=== PATIENT | female | born 1965 | race Caucasian/White ===

== ENCOUNTER 2022-01-03 12:06 | Outpatient (CLI) | payer BC, SELFPAY ==
--- NOTE | 2022-01-03 | ECG_ITS ---
Measurements Intervals [place] Rate: 82 P: 58 MO: 188 QRS: -53 QRSD: 109 T: 44 QT: 370 QTc: 433 Interpretive Statements SINUS RHYTHM LEFT ANTERIOR FASCICULAR BLOCK BASELINE WANDER- I ABNORMAL ECG Electronically Signed On 01-03-2022 13:05:00 CDT by Gutsavo Felder D.O.
[2022-01-03 12:39] LABS: Hematocrit 40.5 % (37.0-47.0); Hemoglobin 13.2 g/dL (12.0-15.0)
[2022-01-03 12:48] LABS: Albumin Level 5.3 g/dL (3.5-5.1); Estimated Glomerular Filt Rate > 60; Glucose 116 mg/dL (65-110)
[2022-01-03 12:49] LABS: Hemoglobin A1C 5.2 % (<5.7)
[2022-01-03 12:49] LABS: Urine Cotinine POSITIVE
== END 2022-01-03 12:07 | disposition home or self-care (01) ==
LOC: ANHLAB 12:08
PROVIDERS: Visit Provider Orthopaedic Surgery
DX: Z01.818 Encounter for other preprocedural examination (principal); M16.11 Unilateral primary osteoarthritis, right hip; I10 Essential (primary) hypertension; I44.4 Left anterior fascicular block
CPT/HCPCS: 80307; 82040; 82565; 82947; 83036; 85014; 85018; 93005

== ENCOUNTER 2022-02-06 10:03 | Outpatient (CLI) | payer BC, SELFPAY ==
[2022-02-06 10:35] LABS: Urine Cotinine NEGATIVE
== END 2022-02-06 10:04 | disposition home or self-care (01) ==
LOC: ANHLAB 10:08
PROVIDERS: Visit Provider Orthopaedic Surgery
DX: M16.11 Unilateral primary osteoarthritis, right hip (principal); Z87.891 Personal history of nicotine dependence; Z01.812 Encounter for preprocedural laboratory examination
CPT/HCPCS: 80307

== ENCOUNTER 2022-03-26 11:50 | Outpatient (CLI) | payer BC, SELFPAY ==
[2022-03-26 13:21] LABS: Basophils Absolute Auto 0.1 K/mm3 (0.0-0.1); Basophils Percent Auto 0.9 % (0.2-1.2); Eosinophils Absolute Auto 0.1 K/mm3 (0-0.3); Eosinophils Percent Auto 2.1 % (0-4.4); Hematocrit 34.3 % (37.0-47.0); Hemoglobin 12.2 g/dL (12.0-15.0); Immature Granulocyte Absolute 0.04 K/mm3 (0.00-0.031); Immature Granulocyte Percent A 0.7 % (0-0.5); Lymphocytes Absolute Auto 2.59 K/mm3 (0.9-3.2); Lymphocytes Percent Auto 45.1 % (18.3-44.2); Mean Corpuscular HGB Conc 35.6 g/dl (32-36); Mean Corpuscular Hemoglobin 33.2 pg (26-34); Mean Corpuscular Volume 93.5 fl (80-100); Mean Platelet Volume 9.3 fl (7.4-10.4); Monocytes Absolute Auto 0.4 K/mm3 (0.1-0.6); Monocytes Percent Auto 6.6 % (2.6-8.5); Neutrophils Absolute Auto 2.6 K/mm3 (1.3-6.7); Neutrophils Percent Auto 44.6 % (45.5-73.1); Platelet Count Result 252 k/mm3 (150-375); Red Blood Count 3.67 M/mm3 (4.2-5.4); Red Cell Distribution Width 12.7 % (11.5-14.5); White Blood Count 5.7 K/mm3 (4.5-10.0)
[2022-03-26 13:31] LABS: Urine Cotinine NEGATIVE
[2022-03-26 13:32] LABS: Albumin Level 5.3 g/dL (3.5-5.1); Estimated Glomerular Filt Rate > 60; Glucose 103 mg/dL (65-110)
[2022-03-26 13:34] LABS: Hemoglobin A1C 5.3 % (<5.7)
== END 2022-03-26 11:51 | disposition home or self-care (01) ==
PROVIDERS: PCP Physician Assistant; Visit Provider Orthopaedic Surgery
DX: M16.11 Unilateral primary osteoarthritis, right hip (principal); Z01.818 Encounter for other preprocedural examination
CPT/HCPCS: 80307; 82040; 82565; 82947; 83036; 85025; 87081

== ENCOUNTER 2022-04-17 01:33 | Day surgery (SDC) | payer BC, SELFPAY ==
[2022-03-26 12:03] VITALS: BMI 24.9
--- NOTE | 2022-03-26 12:26 | PC.NURSE ---
Report to the Outpatient Waiting Room, entrance under the green pavilion located off [facility], at time _0600 on date . OR Time: __04/17/22 729 - You and your visitor will be asked a series of questions to screen for COVID 19 for your protection. - Only one visitor is allowed at this time. - The patient visitor is requested to leave or wait in car when not with patient. - A mask is required within the hospital. Patients may have clear liquids (water, carbonated beverages, clear teas, apple juice) until 3 hours prior to surgery with a maximum of 20 ounces. - No food from midnight until time of surgery - Infants may have breast milk until 4 hours before surgery, infant formula 6 hours prior to surgery. - Children will be allowed to drink immediately following surgery. If applicable, please bring a bottle or sippy cup to assist with drinking. Juice, water, soda, and popsicles are readily available. For infants on formula, please bring formula the day of surgery. Pacifiers are allowed. Take the following medications with a SIP of water the morning of surgery: __PAROXETINE Medications to discontinue per physician IBUPROFEN/ALEVE 7 DAYS PRE OP__MAY TAKE TYLENOL IF NEEDED Date to take last dose__04/09/22 Please no make-up, nail tajik, hairspray, perfume, deodorant, or body powder the day of surgery. No jewelry (including any body piercings) or valuables the day of surgery, leave them at home. Please take a shower or bath the night before, or the morning of, surgery with an antibacterial soap. Wear comfortable, loose fitting clothing. Children are encouraged to wear pajamas. - Jewelry must be removed prior to entering the operating room. Rings and piercings that are not removed may be cut off. - The hospital will not accept responsibility for valuables. - Please leave all valuables, including medications, at home the day of surgery. If you are going home after surgery, a licensed electric pile driver operator must drive you home. - NO public transportation without another adult. - We recommend that an adult stay with you for 24 hours following discharge. - We also recommend that you do not drive, make important decision, drink alcoholic beverages, or take any drugs that were not prescribed by your health care provider for at least 24 hours after your discharge time. For Pediatric surgeries, we recommend two adults accompany the child home (only one inside the building at this time). Follow any additional instructions given to you from your surgeon. If you or anyone in your household have experienced Covid symptoms in the past week, please notify your surgeon or the nurse liaison at the phone number below for possible testing. VERBAL AND WRITTEN instructions given to __PATIENT and asked if any additional questions and then verbalized understanding. Patient advised to call surgeon office or pre surgery nurse liaison [phone] if any additional questions.
[2022-03-26 12:48] VITALS: BP 144/93; PULSE 75; RESP 18; TEMP 36.6; O2SAT 100
--- NOTE | 2022-04-16 13:54 | WPDANESEPPF ---
Anes - Initial Pre Proc Eval Procedure: Operation Date: 04/17/22 07:30 Proposed Procedures p Right Total Hip Arthroplasty - Dm Ziegler MD Date/Time: 04/16/22 13:54 Surgeon: Dm Ziegler MD Pre Op Diagnosis: primary oa right hip Patient Data Age: 56 Gender: F Height: 1.64 m Weight: 66.9 kg Last Vital Signs Temp 36.6 C 03/26/22 12:48 Pulse 75 03/26/22 12:48 Resp 18 03/26/22 12:48 BP 144/93 H 03/26/22 12:48 Pulse Ox 100 03/26/22 12:48 O2 Del Method Room Air 03/26/22 12:48 Allergies Allergy/AdvReac Type Severity Reaction Status Date / Time latex Allergy Intermediate RASH/ITCHIN Verified 04/17/22 06:28 G adhesive tape AdvReac Severe SKIN TORE Verified 04/17/22 06:28 OFF Home Medications Medication Instructions Recorded Confirmed Type lisinopril 40 mg tablet 40 mg PO DAILY 01/01/22 04/17/22 History paroxetine HCl 40 mg tablet 40 mg PO DAILY 01/01/22 04/17/22 History hydrochlorothiazide 12.5 mg tablet 12.5 mg PO DAILY 03/26/22 04/17/22 History ibuprofen 600 mg tablet 600 mg PO TID PRN Pain 03/26/22 04/17/22 History Patient hx anesthesia problems: post op nausea/vomiting Family hx anesthesia problems: none Results Review: All pre-operative results and documents have been reviewed as part of the pre-operative evaluation. [facility] Past Medical History Medical History (Updated 04/16/22 @ 13:55 by Eitan Mariscal DO) delivery delivered Hypertension PONV (postoperative nausea and vomiting) Surgical History Surgical History (Updated 04/16/22 @ 13:55 by Eitan Mariscal DO) H/O: hysterectomy History of abdominoplasty Hx of breast reduction, elective Family History Family History Other Arthritis Hypertension Social History Social History Years smoked: 20 Smoking status: Former smoker Tobacco type: cigarettes Smoking end date: 10/03/21 Additional smoking assessment comments: DENIES ANY FORM OF TOBACCO USE Alcohol intake: current Drinks per week: 12 Alcohol use details: BEER Substance use: current Living arrangements: alone Spiritual care concerns: No Anes - Eval Final PreProcedure Day of Procedure 04/16/22 13:54 Patient weight: normal Heart: regular rate and rhythm Lungs: clear to auscultation Airway: Mallampati scale class II Neurological: alert and oriented Last oral intake: >/= 8 hours ASA classification: III Emergent: no Anesthetic plan: proceed Anesthesia type and monitoring: general ETT and standard monitoring Results Review: All pre-operative results and documents have been reviewed as part of the pre-operative evaluation. Informed Consent: The patient's anesthetic plan and its attendant risks and benefits were discussed with the patient/family/POA. Questions were solicited and answers provided to the satisfaction of the patient/family/POA.
[2022-04-17] VITALS (13 sets, daily range): BP systolic 114–171; BP diastolic 63–98; PULSE 85–126; RESP 12–20; TEMP 36.4–37.1; O2SAT 94–100
--- NOTE | ~2022-04-17 | XR_ITS ---
EXAMINATION: XR hip RT min 2V DATE: 04/17/2022 09:30 INDICATION: Right total hip arthroplasty TECHNIQUE: 2 views right hip FINDINGS: There is a right total hip arthroplasty in expected position. Subcutaneous gas with soft t issue swelling are consistent with recent surgery. IMPRESSION: 1. Recent right total hip arthroplasty. Reviewed, dictated and finalized at location B.
[2022-04-17] MEDS: ACETAMINOPHEN 500 MG TABLET 1000 MG PO (06:35)
[2022-04-17] MEDS: LACTATED RINGERS 1,000 ML 30 ML IV CONT ×2 (06:47→09:18)
[2022-04-17] MEDS: SCOPOLAMINE 1.5 MG PATCH TRANSDERM (07:02)
[2022-04-17] MEDS: TRANEXAMIC ACID 1,000MG/ISO100 1,000 MG/100 ML BAG 200 MG IVPB (07:06)
--- NOTE | 2022-04-17 07:13 | WPDHPUPDATE1 ---
History and Physical Update Update Date/Time: 04/17/22 07:13 History and Physical has been reviewed, including an updated exam of the patient. There are NO changes in the patient's condition. Risks, benefits, and alternatives have been discussed and questions answered. Patient agrees to proceed with procedure.
[2022-04-17] MEDS: ceFAZolin 2 GM/D5W 50 ML 2 GM/50 ML BAG IVPB ×3 (07:22→23:54)
[2022-04-17] MEDS: fentaNYL CITRATE INJ (*CRX) 100 MCG/2 ML VIAL 25 MCG IV PUSH ×2 (09:46→09:49)
--- NOTE | 2022-04-17 11:13 | ADMGEN ---
This patient, Emi Pratt, was admitted to 2 Medical Room 249-01. Patient/family oriented to hospital policies and general routines including ID bracelet, bed and alarms, visiting hours, pain management, procedures, bathroom and other care routines, personal items, smoking policy, room service/diet, and visiting hours. Information on how to activate the Rapid Response Team has been discussed. Patient/Family are encouraged to report perceived risks to care and to ask questions if they do not understand what they are told or what they should do. Report received from MAXINE Barros
[2022-04-17] MEDS: hydroCHLOROthiazide 12.5 MG CAPSULE PO (12:12)
[2022-04-17] MEDS: lisinopriL 20 MG TABLET 40 MG PO (12:13)
[2022-04-17] MEDS: IBUPROFEN 400 MG TABLET 800 MG PO ×2 (14:27→21:04)
[2022-04-17] MEDS: oxyCODONE HCL (*CRX) 5 MG TAB IR 10 MG PO (14:28)
--- NOTE | 2022-04-17 15:00 | W.PM.PROC2 ---
Procedure Note - Detailed Date of Procedure 04/17/22 Pre-op Diagnosis primary oa right hip Post-op Diagnosis Same Procedure Performed Right Total Hip Arthroplasty Surgeon Dm Ziegler MD Ambulance Driver Paramedic Nely Cazares PA-C Anesthesia General Description of Procedure The patient was given preoperative antibiotics. A general anesthetic was administered. The patient was carefully placed in the lateral decubitus position on the PEG board. The shoulders and hips were carefully positioned for component and leg length positioning reference. The hip was prepped and draped in the usual sterile fashion. A longitudinal incision was created over the posterior aspect of the greater trochanter. Careful dissection was brought down through the deep fascia with electrocautery. A minimally invasive optimized posterior approach to the hip was performed. The short external rotators and capsule were taken down in an L-shaped capsulotomy. The tissue was tagged for later repair using number 2 high strength suture. The femoral neck was measured and taken in situ. The femoral head was removed. The acetabulum was carefully exposed. The inferior capsule was released. The labrum was resected. The acetabulum was sequentially reamed to the intended cup size. The cup was impacted into position with excellent press-fit. Typical anatomic landmarks, including the bony contact points as well as the inferior transverse acetabular ligament were used to confirm cup positioning with preoperative templating. Attention was turned to the femur, which was carefully exposed. The hip was reamed and then broached sequentially. Excellent press-fit was obtained with the broach. The hip was trialed. Measurements were utilized, including the lesser trochanter as well as the center of the femoral head and the tip of the trochanter, and excellent assessment of the offset and leg lengths were confirmed. The real component was impacted into position. Trialing confirmed appropriate leg length and offset with soft tissue balancing as well apparent feel of the leg, both at the knee and the heel. Soft tissues were assessed using the the iliotibial band. Reduction of the posterior capsule and external rotators were also used as a secondary assessment. The hip was copiously irrigated with pulsatile lavage antibiotic solution periodically throughout the procedure. The real components were then assembled and reduced. The hip was stable throughout typical maneuvers, including extension, external rotation to 70 degrees, the position of sleep as well as flexion to 90 degrees with internal rotation past 45 degrees. The shake test confirmed stability without impingement. Osteophytes were removed as necessary. The short external rotators and capsule were repaired back to the posterior trochanter through drill holes. The deep fascia was repaired with running number 2 Quill suture, followed by 0 Stratafix suture and 2-0 Stratafix suture in the dermis. Steri-Strips were placed on the skin, followed by a sterile silver occlusive dressing. There were no complications. Meticulous hemostasis was maintained with the AquaMantys device. The patient was brought to the recovery room in stable condition. There were no complications. Physician assistant community director, Nely Cazares PA-C, required for surgery; including patient positioning, draping, tissue retraction, maintaining instrument position, hip dislocation/ relocation, wound closure, and dressing placement. Implants The Accolade II hip stem, 127 degree size 3 , was utilized with excellent press-fit. The 50 mm Trident II acetabular component was impacted with excellent press-fit stability. The +5 , 36 mm Biolox ceramic femoral head was utilized. Estimated Blood Loss -150.0 Drains No Packing No Pathology None sent Complications No immediate complications Condition Stable Disposition PACU [facility] Billing Surgery - Charge Forward: Surgery Billing
[2022-04-17] MEDS: ASPIRIN 81 MG ENTERIC TABLET PO (16:08)
[2022-04-17] MEDS: SENNA/DOCUSATE SODIUM TABLET 2 TAB PO (16:08)
[2022-04-17] MEDS: oxyCODONE HCL (*CRX) 5 MG TAB IR PO (18:33)
[2022-04-17] MEDS: FAMOTIDINE 20 MG TABLET PO (21:04)
[2022-04-18] MEDS: oxyCODONE HCL (*CRX) 5 MG TAB IR PO ×2 (00:22→09:35)
[2022-04-18 00:32] VITALS: BP 118/69; PULSE 80; RESP 18; TEMP 36.4; O2SAT 100
[2022-04-18 04:32] VITALS: BP 98/61; PULSE 77; RESP 18; TEMP 36.4; O2SAT 100
[2022-04-18] MEDS: IBUPROFEN 400 MG TABLET 800 MG PO ×2 (06:23→13:38)
[2022-04-18 09:33] VITALS: BP 133/62; PULSE 91
[2022-04-18] MEDS: ceFAZolin 2 GM/D5W 50 ML 2 GM/50 ML BAG IVPB (09:34)
[2022-04-18] MEDS: SENNA/DOCUSATE SODIUM TABLET 2 TAB PO (09:37)
[2022-04-18] MEDS: lisinopriL 20 MG TABLET 40 MG PO (09:37)
[2022-04-18] MEDS: hydroCHLOROthiazide 12.5 MG CAPSULE PO (09:37)
[2022-04-18] MEDS: FAMOTIDINE 20 MG TABLET PO (09:37)
[2022-04-18] MEDS: ASPIRIN 81 MG ENTERIC TABLET PO (09:37)
--- NOTE | 2022-04-18 09:59 | WPDANESPN ---
Anes - Prog Note Post-Op Date/Time: 04/18/22 09:59 Cardiovascular status: normal Respiratory status: normal Airway patency: baseline Mental status: baseline Post-Op hydration status: normal Vital Signs: Last Vital Signs Temp 36.4 C 04/18/22 04:32 Pulse 91 04/18/22 09:33 Resp 18 04/18/22 04:32 BP 133/62 04/18/22 09:33 Pulse Ox 100 04/18/22 04:32 O2 Del Method Room Air 04/17/22 13:08 O2 Flow Rate 8 04/17/22 10:05 Pain Score (VAS): 3 I/O: Intake & Output 04/17/22 04/18/22 04/18/22 23:59 07:59 15:59 Intake Total 850 150 360 Output Total 900 500 Balance -50 -350 360 Post-procedural complaints: none Patient Feedback: Patient satisfied with anesthetic care.
[2022-04-18] MEDS: PARoxetine 20 MG TABLET 40 MG PO (12:27)
[2022-04-18] MEDS: polyethylene glycoL 3350 17 GM POWD.PACK PO (12:27)
[2022-04-18 12:32] VITALS: BP 130/64; PULSE 86; RESP 18; TEMP 36.4; O2SAT 100
--- NOTE | 2022-04-18 16:20 | PM.DS ---
DS: Admitting Diagnosis Discharge Date 04/18/22 Admitting Diagnosis Right hip arthritis. DS: Discharge Diagnosis Discharge Diagnosis (1) Status post total hip replacement, right: Code(s): Z96.641 - Presence of right artificial hip joint Status: Acute DS: Summary Hospital Course Reason for hospitalization: Total hip arthroplasty. Hospital Course: Tolerated surgery well. Progressed appropriately with therapy. Status at Discharge Functional status at discharge: uses cane/walker Overall status at discharge: patient is progressing back to baseline Time Spent with Patient Time attestation: Total time spent providing and/or coordinating discharge services: Exam Const: General: no acute distress Resp: Effort & Inspection: normal respiratory effort Skin: Other: Wound healing well. Mepilex dressing intact. No hematoma or drainage. Neuro: Motor exam (neuro): 5/5 motor strength present throughout Sensory Exam: normal sensation Psych: Mental Status: mental status grossly normal Speech and movement: Normal speech and movement present DS: Data Procedures/Treatments: Right total hip arthroplasty. Discharge Plan Discharge Patient Disposition: Home, Self-Care Discharge Instructions: See instruction sheet. Stand Alone Forms: General Discharge Instructions Follow-up/Referrals: Dm Ziegler MD [Physician] - Discharge Medications: New aspirin 81 mg Tablet,Delayed Release (Dr/Ec) 81 mg PO BID Qty: 30 0RF oxycodone-acetaminophen 5-325 mg tablet 1 - 2 tablet PO Q4-6H MDD 6 tablets PRN (Reason: pain) Qty: 20 0RF Continued lisinopril 40 mg tablet 40 mg PO DAILY paroxetine HCl 40 mg tablet 40 mg PO DAILY hydrochlorothiazide 12.5 mg tablet 12.5 mg PO DAILY ibuprofen 600 mg Tablet 600 mg PO TID PRN (Reason: Pain)
== END 2022-04-18 17:28 | disposition home or self-care (01) ==
LOC: ANHSURGERY 06:00 → ANH2MED 10:51
PROVIDERS: PCP Physician Assistant; Visit Provider Orthopaedic Surgery
PROC: (CPT 27130; principal; 2022-04-17 07:30)
DX: M16.11 Unilateral primary osteoarthritis, right hip (principal); I10 Essential (primary) hypertension; Z87.891 Personal history of nicotine dependence
CPT/HCPCS: 27130; 36415; 73502; 86850; 86900; 86901; 97110; 97116; 97161; 97165; 97530; 97535; A9270; C1776; J0131; J0171; J0690; J1100; J1170; J1885; J2250; J2270; J2405; J2704; J2710; J2795; J3010; J7120

== ENCOUNTER 2022-06-06 14:49 | Outpatient (CLI) | payer BC, SELFPAY ==
[2022-06-06 15:38] LABS: Hematocrit 36.8 % (37.0-47.0); Hemoglobin 12.3 g/dL (12.0-15.0)
[2022-06-06 15:47] LABS: Albumin Level 5.1 g/dL (3.5-5.1); Estimated Glomerular Filt Rate > 60; Glucose 104 mg/dL (65-110)
[2022-06-06 15:48] LABS: Hemoglobin A1C 4.9 % (<5.7)
[2022-06-06 21:42] LABS: Urine Cotinine NEGATIVE
== END 2022-06-06 14:50 | disposition home or self-care (01) ==
LOC: ANHLAB 14:51
PROVIDERS: PCP Physician Assistant; Visit Provider Orthopaedic Surgery
DX: M16.12 Unilateral primary osteoarthritis, left hip (principal); Z92.29 Personal history of other drug therapy
CPT/HCPCS: 80307; 82040; 82565; 82947; 83036; 85014; 85018

== ENCOUNTER 2022-07-18 13:04 | Outpatient (CLI) | payer BC, SELFPAY ==
[2022-07-18 13:34] LABS: Basophils Absolute Auto 0.1 K/mm3 (0.0-0.1); Basophils Percent Auto 0.9 % (0.2-1.2); Eosinophils Absolute Auto 0.2 K/mm3 (0-0.3); Eosinophils Percent Auto 2.5 % (0-4.4); Hematocrit 38.9 % (37.0-47.0); Hemoglobin 12.9 g/dL (12.0-15.0); Immature Granulocyte Absolute 0.05 K/mm3 (0.00-0.031); Immature Granulocyte Percent A 0.7 % (0-0.5); Lymphocytes Absolute Auto 2.93 K/mm3 (0.9-3.2); Lymphocytes Percent Auto 39.1 % (18.3-44.2); Mean Corpuscular HGB Conc 33.2 g/dl (32-36); Mean Corpuscular Hemoglobin 32.3 pg (26-34); Mean Corpuscular Volume 97.3 fl (80-100); Mean Platelet Volume 9.1 fl (7.4-10.4); Monocytes Absolute Auto 0.4 K/mm3 (0.1-0.6); Monocytes Percent Auto 5.9 % (2.6-8.5); Neutrophils Absolute Auto 3.8 K/mm3 (1.3-6.7); Neutrophils Percent Auto 50.9 % (45.5-73.1); Platelet Count Result 273 k/mm3 (150-375); Red Cell Distribution Width 11.4 % (11.5-14.5); White Blood Count 7.5 K/mm3 (4.5-10.0)
[2022-07-18 13:42] LABS: Anion Gap 11 mmol/L (8-16); Blood Urea Nitrogen 15 mg/dL (7-17); Calcium 9.2 mg/dL (8.4-10.2); Carbon Dioxide 26 mmol/L (22-30); Chloride 103 mmol/L (98-107); Estimated Glomerular Filt Rate > 60; Glucose 137 mg/dL (65-110); Potassium 4.1 mmol/L (3.4-5.0); Sodium 140 mmol/L (137-145)
== END 2022-07-18 13:05 | disposition home or self-care (01) ==
LOC: ANHSURGERY 13:08
PROVIDERS: Anesthesiology; PCP Physician Assistant; Visit Provider Orthopaedic Surgery
DX: M16.12 Unilateral primary osteoarthritis, left hip (principal); Z01.818 Encounter for other preprocedural examination
CPT/HCPCS: 36415; 80048; 85025; 86850; 86900; 86901; 87081

== ENCOUNTER 2022-07-24 01:24 | Day surgery (SDC) | payer BC, SELFPAY ==
[2022-07-13 13:05] VITALS: BMI 26.0
--- NOTE | 2022-07-13 13:33 | PC.NURSE ---
Report to the Outpatient Waiting Room, entrance under the green pavilion located off [facility], at time _11:30AM on date __07/24/22 . Planned Procedure Time: __1:30PM . Time changes happen often and if your time is changed the preop area will call you the afternoon before. - You and your visitor will be asked to self-screen and do not enter if you have any COVID symptoms. - We encourage only one visitor and NO visitors under age 16 are allowed at this time. Your visitor will receive communication by the phone number that is given day of service. - The patient visitor is requested to social distance or may leave the building when not with patient due to restrictions. - A mask is required within the hospital. Patients may have clear liquids (water, carbonated beverages, clear teas, apple juice) until 3 hours prior to surgery with a maximum of 20 ounces. - No food from midnight until time of surgery Take the following medications with a SIP of water the morning of surgery: PAROXETINE Medications to discontinue per physician ____HOLD ALL VITAMINS/SUPPLEMENTS 7 DAYS PRE-OP PER DR MATUTE(PER PT) AND HOLD ASPIRIN 7 DAYS PRE-OP PER DR MATUTE Date to take last dose____07/17/22 Please no make-up, nail vietnamese, hairspray, perfume, deodorant, or body powder the day of surgery. No jewelry (including any body piercings) or valuables the day of surgery, leave them at home. Please take a shower or bath the night before, or the morning of, surgery with an antibacterial soap. Wear comfortable, loose fitting clothing. Children are encouraged to wear pajamas. - Jewelry must be removed prior to entering the operating room. Rings and piercings that are not removed may be cut off. - The hospital will not accept responsibility for valuables. - Please leave all valuables, including medications, at home the day of surgery. If you are going home after surgery, a licensed drive away driver must drive you home. - NO public transportation without another adult. - We recommend that an adult stay with you for 24 hours following discharge. - We also recommend that you do not drive, make important decision, drink alcoholic beverages, or take any drugs that were not prescribed by your health care provider for at least 24 hours after your discharge time.ome. Follow any additional instructions given to you from your surgeon. If you or anyone in your household have experienced Covid symptoms in the past week, please notify your surgeon or the nurse liaison at the phone number below for possible testing. Telephone instructions given to __PATIENT and asked if any additional questions and then verbalized understanding. Patient advised to call surgeon office or pre surgery nurse liaison [phone] if any additional questions.
--- NOTE | 2022-07-23 12:53 | WPDANESEPPF ---
Anes - Initial Pre Proc Eval Procedure: Operation Date: 07/24/22 13:30 Proposed Procedures p Left Total Hip Arthroplasty - Dm Ziegler MD Date/Time: 07/23/22 12:53 Surgeon: Dm Ziegler MD Pre Op Diagnosis: Prim O A Lt Hip Patient Data Age: 56 Gender: F Height: 1.64 m Weight: 70 kg Allergies Allergy/AdvReac Type Severity Reaction Status Date / Time latex Allergy Intermediate RASH/ITCHIN Verified 07/18/22 13:46 G adhesive tape AdvReac Intermediate SKIN TORE Verified 07/18/22 13:46 OFF Home Medications Medication Instructions Recorded Confirmed Type lisinopril 40 mg tablet 40 mg PO DAILY 01/01/22 07/24/22 History paroxetine HCl 40 mg tablet 40 mg PO DAILY 01/01/22 07/24/22 History ibuprofen 600 mg tablet 600 mg PO TID PRN Pain 03/26/22 07/24/22 History aspirin 81 mg tablet,delayed 81 mg PO DAILY 07/13/22 07/24/22 History release oxycodone-acetaminophen 5 mg-325 1 - 2 tablet PO Q4-6H PRN pain #40 07/18/22 07/24/22 Rx mg tablet (Percocet) tabs Patient hx anesthesia problems: none Family hx anesthesia problems: none Results Review: All pre-operative results and documents have been reviewed as part of the pre-operative evaluation. [facility] Past Medical History Medical History (Updated 07/23/22 @ 12:54 by Sharan Lara MD) Arthritis delivery delivered Hypertension PONV (postoperative nausea and vomiting) Surgical History Surgical History H/O: hysterectomy History of abdominoplasty Hx of breast reduction, elective Status post total hip replacement, right Family History Family History Other Arthritis Hypertension Social History Social History Smoking packs per day: 0.20 Smoking cigarettes per day: 4.0 Years smoked: 10 Smoking pack-years: 2.00 Smoking status: Former smoker Tobacco type: cigarettes Smoking end date: 03/02/20 Additional smoking assessment comments: DENIES ANY FORM OF TOBACCO USE Alcohol intake: current Drinks per week: 12 Alcohol use details: BEER Substance use: current Substance use type: marijuana Other substance usage details: EDIBLES PRN Last use: 04/15/2022 Lack of Transportation: No Lack of Food: Never True Current Housing: I Have Housing Concerned About Future Housing: No Difficulty Paying Gas/Electric Bills: No Difficulty Paying for Meds: No Currently Unemployed: No Education: Bachelor's Degree Difficulty w/ Childcare or Family Care: No Living arrangements: alone Gender identity (if verbalized by the patient): Female Sexual Orientation (if Verbalized by the Patient): Straight or Heterosexual Spiritual care concerns: No Anes - Eval Final PreProcedure Day of Procedure 07/23/22 12:53 Patient weight: overweight Heart: regular rate and rhythm Lungs: clear to auscultation Airway: Mallampati scale class II Neurological: alert and oriented Last oral intake: >/= 8 hours ASA classification: III Emergent: no Anesthetic plan: proceed Anesthesia type and monitoring: general ETT and standard monitoring Results Review: All pre-operative results and documents have been reviewed as part of the pre-operative evaluation. Informed Consent: The patient's anesthetic plan and its attendant risks and benefits were discussed with the patient/family/POA. Questions were solicited and answers provided to the satisfaction of the patient/family/POA.
[2022-07-24] VITALS (11 sets, daily range): BP systolic 133–185; BP diastolic 71–99; PULSE 74–114; RESP 16–20; TEMP 36.1–37.4; O2SAT 92–100
--- NOTE | ~2022-07-24 | XR_ITS ---
EXAMINATION: XR hip LT min 2V DATE: 07/24/2022 16:40 INDICATION: Left total hip arthroplasty TECHNIQUE: 3 views left hip FINDINGS: There is a left total hip arthroplasty in expected position. Subcutaneous gas with soft ti ssue swelling are consistent with recent surgery. IMPRESSION: 1. Recent left total hip arthroplasty. Reviewed, dictated and finalized at location B. ING MACHINE OPERATOR
--- NOTE | 2022-07-24 10:12 | WPDHPUPDATE1 ---
History and Physical Update Update Date/Time: 07/24/22 10:12 History and Physical has been reviewed, including an updated exam of the patient. There are NO changes in the patient's condition. Risks, benefits, and alternatives have been discussed and questions answered. Patient agrees to proceed with procedure.
[2022-07-24] MEDS: ACETAMINOPHEN 500 MG TABLET 1000 MG PO (11:42)
[2022-07-24] MEDS: LACTATED RINGERS 1,000 ML 30 ML IV CONT ×2 (11:55→15:52)
[2022-07-24] MEDS: SCOPOLAMINE 1.5 MG PATCH TRANSDERM (12:55)
[2022-07-24] MEDS: TRANEXAMIC ACID 1,000MG/ISO100 1,000 MG/100 ML BAG 200 MG IVPB (12:56)
[2022-07-24] MEDS: ceFAZolin 2 GM/D5W 50 ML 2 GM/50 ML BAG IVPB ×2 (14:05→19:59)
--- NOTE | 2022-07-24 16:08 | W.PM.PROC2 ---
Procedure Note - Detailed Date of Procedure 07/24/22 Pre-op Diagnosis Prim O A Lt Hip Post-op Diagnosis Same Procedure Performed Left Total Hip Arthroplasty Surgeon Dm Ziegler MD Bowling Teacher Nely Cazares PA-C Anesthesia General Findings Satisfactory bone quality. Mild acetabular dysplasia with hypertrophic labrum. Description of Procedure The patient was given preoperative antibiotics. A general anesthetic was administered. The patient was carefully placed in the lateral decubitus position on the PEG board. The shoulders and hips were carefully positioned for component and leg length positioning reference. The hip was prepped and draped in the usual sterile fashion. A longitudinal incision was created over the posterior aspect of the greater trochanter. Careful dissection was brought down through the deep fascia with electrocautery. A minimally invasive optimized posterior approach to the hip was performed. The short external rotators and capsule were taken down in an L-shaped capsulotomy. The tissue was tagged for later repair using number 2 high strength suture. The femoral neck was measured and taken in situ. The femoral head was removed. The acetabulum was carefully exposed. The inferior capsule was released. The labrum was resected. The acetabulum was sequentially reamed to the intended cup size. The cup was impacted into position with excellent press-fit. Typical anatomic landmarks, including the bony contact points as well as the inferior transverse acetabular ligament were used to confirm cup positioning with preoperative templating. Attention was turned to the femur, which was carefully exposed. The hip was reamed and then broached sequentially. Excellent press-fit was obtained with the broach. The hip was trialed. Measurements were utilized, including the lesser trochanter as well as the center of the femoral head and the tip of the trochanter, and excellent assessment of the offset and leg lengths were confirmed. The real component was impacted into position. Trialing confirmed appropriate leg length and offset with soft tissue balancing as well apparent feel of the leg, both at the knee and the heel. Soft tissues were assessed using the the iliotibial band. Reduction of the posterior capsule and external rotators were also used as a secondary assessment. The hip was copiously irrigated with pulsatile lavage antibiotic solution periodically throughout the procedure. The real components were then assembled and reduced. The hip was stable throughout typical maneuvers, including extension, external rotation to 70 degrees, the position of sleep as well as flexion to 90 degrees with internal rotation past 45 degrees. The shake test confirmed stability without impingement. Osteophytes were removed as necessary. The short external rotators and capsule were repaired back to the posterior trochanter through drill holes. The deep fascia was repaired with running number 2 Quill suture, followed by 0 Stratafix suture and 2-0 Stratafix suture in the dermis. Steri-Strips were placed on the skin, followed by a sterile silver occlusive dressing. There were no complications. Meticulous hemostasis was maintained with the AquaMantys device. The patient was brought to the recovery room in stable condition. There were no complications. Physician hospital medical assistant, Nely Cazares PA-C, required for surgery; including patient positioning, draping, tissue retraction, maintaining instrument position, hip dislocation/ relocation, wound closure, and dressing placement. Implants The Accolade II hip stem, 127 degree size 3 , was utilized with excellent press-fit. The 50 mm Trident II acetabular component was impacted with excellent press-fit stability. The +2.5, 36 mm Biolox ceramic femoral head was utilized. Estimated Blood Loss -200.0 Drains No Packing No Pathology None sent Complications No immediate complications Condition Stable
--- NOTE | 2022-07-24 17:18 | ADMGEN ---
This patient, Emi Pratt, was admitted to Medical Room 347-. Patient/family oriented to hospital policies and general routines including ID bracelet, bed and alarms, visiting hours, pain management, procedures, bathroom and other care routines, personal items, smoking policy, room service/diet, and visiting hours. Information on how to activate the Rapid Response Team has been discussed. Patient/Family are encouraged to report perceived risks to care and to ask questions if they do not understand what they are told or what they should do.
[2022-07-24] MEDS: SENNA/DOCUSATE SODIUM TABLET 2 TAB PO (17:34)
[2022-07-24] MEDS: FAMOTIDINE 20 MG TABLET PO (19:59)
[2022-07-24] MEDS: oxyCODONE HCL (*CRX) 5 MG TAB IR PO (20:06)
[2022-07-25 00:13] VITALS: BP 158/86; PULSE 99; RESP 18; TEMP 36.3; O2SAT 95
[2022-07-25] MEDS: oxyCODONE HCL (*CRX) 5 MG TAB IR 10 MG PO ×2 (02:09→10:03)
[2022-07-25] MEDS: ceFAZolin 2 GM/D5W 50 ML 2 GM/50 ML BAG IVPB ×2 (05:08→13:06)
[2022-07-25 05:27] VITALS: BP 149/76; PULSE 75; RESP 16; TEMP 36.2; O2SAT 97
[2022-07-25 06:02] LABS: Basophils Percent Auto 0.3 % (0.2-1.2); Hematocrit 30.2 % (37.0-47.0); Immature Granulocyte Absolute 0.04 K/mm3 (0.00-0.031); Immature Granulocyte Percent A 0.4 % (0-0.5); Lymphocytes Absolute Auto 1.38 K/mm3 (0.9-3.2); Mean Corpuscular HGB Conc 33.1 g/dl (32-36); Mean Corpuscular Hemoglobin 32.5 pg (26-34); Mean Corpuscular Volume 98.1 fl (80-100); Mean Platelet Volume 9.4 fl (7.4-10.4); Monocytes Absolute Auto 0.6 K/mm3 (0.1-0.6); Monocytes Percent Auto 6.5 % (2.6-8.5); Neutrophils Absolute Auto 7.8 K/mm3 (1.3-6.7); Neutrophils Percent Auto 78.8 % (45.5-73.1); Platelet Count Result 229 k/mm3 (150-375); Red Blood Count 3.08 M/mm3 (4.2-5.4); Red Cell Distribution Width 11.9 % (11.5-14.5); White Blood Count 9.9 K/mm3 (4.5-10.0)
[2022-07-25 06:22] LABS: Anion Gap 8 mmol/L (8-16); Blood Urea Nitrogen 13 mg/dL (7-17); Calcium 8.1 mg/dL (8.4-10.2); Carbon Dioxide 22 mmol/L (22-30); Chloride 106 mmol/L (98-107); Estimated CRCL calculation 67 ml/min; Estimated Glomerular Filt Rate > 60; Glucose 129 mg/dL (65-110); Potassium 3.7 mmol/L (3.4-5.0); Sodium 136 mmol/L (137-145)
[2022-07-25] MEDS: PARoxetine 20 MG TABLET 40 MG PO (08:19)
[2022-07-25] MEDS: FAMOTIDINE 20 MG TABLET PO (08:19)
[2022-07-25] MEDS: ASPIRIN 81 MG ENTERIC TABLET PO (08:19)
[2022-07-25] MEDS: SENNA/DOCUSATE SODIUM TABLET 2 TAB PO (08:19)
[2022-07-25] MEDS: predniSONE 5 MG TABLET PO (08:19)
[2022-07-25] MEDS: lisinopriL 20 MG TABLET 40 MG PO (08:19)
[2022-07-25] MEDS: polyethylene glycoL 3350 17 GM POWD.PACK PO (08:20)
--- NOTE | 2022-07-25 09:48 | PM.DS ---
DS: Admitting Diagnosis Discharge Date 07/25/22 Admitting Diagnosis OA Left hip DS: Discharge Diagnosis Discharge Diagnosis Plan Postop day 1: Left total Hip arthroplasty. Patient tolerated procedure well. No complications. Pain manageable with pain medication. No numbness or tingling. We had a lengthy discussion regarding postoperative wound care, limitations, expectations, and exercises. Patient shows good understanding. She has had initial physical therapy and is tolerating it well. DVT prophylaxis: 81 mg baby aspirin b.i.d. for 14 days. Pain medication: Percocet. Patient has followup appointment with Dr. Ziegler in 3 weeks. DS: Summary Hospital Course Reason for hospitalization: Total hip arthroplasty Hospital Course: Patient tolerated procedure well. Has had initial PT/OT. Status at Discharge Functional status at discharge: uses cane/walker Overall status at discharge: patient is progressing back to baseline Time Spent with Patient Time attestation: Total time spent providing and/or coordinating discharge services: Exam Narrative: Normal weight 56 y/o female. Resting comfortably in chair. Wearing compression socks bilaterally. Dressing dry and intact with no drainage. Mild swelling. No ecchymosis. No erythema. No hematoma. Range of motion limited due to pain. Calf nontender. Thigh nontender. Neurologic status intact. No varicosities. Distal pulses palpable. DS: Data Data Completed and Pending Labs on day of discharge: Labs from last 24 hours 07/25/22 07/25/22 05:44 05:44 WBC 9.9 RBC 3.08 L Hgb 10.0 L Hct 30.2 L MCV 98.1 MCH 32.5 MCHC 33.1 RDW 11.9 Plt Count 229 MPV 9.4 Immature Gran % (Auto) 0.4 Neut % (Auto) 78.8 H Lymph % (Auto) 14.0 L [place] % (Auto) 6.5 Eos % (Auto) 0.0 Baso % (Auto) 0.3 Lymph # (Auto) 1.38 [place] # (Auto) 0.6 Eos # (Auto) 0.0 Baso # (Auto) 0.0 Abs Immat Gran (auto) 0.04 H Absolute Neuts (auto) 7.8 H Absolute Nucleated RBC 0.0 Nucleated RBC % 0.0 Sodium 136 L Potassium 3.7 Chloride 106 Carbon Dioxide 22 Anion Gap 8 BUN 13 Creatinine 0.70 Estim Creat Clear Calc 67 Estimated GFR > 60 Glucose 129 H Calcium 8.1 L Discharge Plan Discharge Patient Disposition: Home, Self-Care Discharge Instructions: Remove the Scopolamine patch that was placed behind your ear in 72 hours or less. Wash your hands after touching. See green instructions sheets Stand Alone Forms: General Discharge Instructions Follow-up/Referrals: Nely Cazares PA [Physician Shrimp Peeling Machine Operator] - Discharge Medications: Continued lisinopril 40 mg tablet 40 mg PO DAILY Rx Instructions: TAKES IN AM paroxetine HCl 40 mg tablet 40 mg PO DAILY Rx Instructions: TAKES IN AM oxycodone-acetaminophen [Percocet] 5-325 mg tablet 1 - 2 tablet PO Q4-6H PRN (Reason: pain) Qty: 40 0RF Rx Instructions: FOR POST OP USAGE ibuprofen 600 mg Tablet 600 mg PO TID PRN (Reason: Pain) aspirin 81 mg tablet,delayed release (DR/EC) 81 mg PO DAILY
[2022-07-25 14:00] VITALS: BP 147/75; PULSE 86; RESP 16; TEMP 36.4; O2SAT 98
== END 2022-07-25 16:40 | disposition home or self-care (01) ==
LOC: ANHSURGERY 12:54 → ANH3MED 16:57
PROVIDERS: Physician Assistant Surgical; PCP Physician Assistant; Visit Provider Orthopaedic Surgery
PROC: (CPT 27130; principal; 2022-07-24 13:30)
DX: M16.12 Unilateral primary osteoarthritis, left hip (principal); I10 Essential (primary) hypertension; Z79.82 Long term (current) use of aspirin; Z87.891 Personal history of nicotine dependence; F12.90 Cannabis use, unspecified, uncomplicated
CPT/HCPCS: 27130; 36415; 73502; 80048; 85025; 97110; 97161; 97165; 97530; A9270; C1776; J0131; J0171; J0690; J1100; J1170; J1885; J2250; J2270; J2405; J2704; J2710; J2795; J3010; J7120; J7512